=== PATIENT | female | born 2000 | race Caucasian/White ===

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

== ENCOUNTER 2018-05-25 10:09 | Day surgery (SDC) | payer BC, OTHER ==
[~2018-05-25] VITALS: Ht 167.6 cm; Wt 60.7 kg
[2018-05-25 10:37] VITALS: BP 111/83; PULSE 80; TEMP 98.2
[2018-05-25] MEDS ORDERED: LESSINA 28 0.021 TAB PO (10:37)
[2018-05-25] MEDS ORDERED: LEXAPRO 10MG10 MG PO (10:37)
[2018-05-25] MEDS ORDERED: CARAFATE 1GM1 G PO (10:37)
[2018-05-25 12:05] VITALS: BP 118/85; PULSE 103; TEMP 98
[2018-05-25 12:20] VITALS: BP 116/80; PULSE 72
[2018-05-25 12:35] VITALS: BP 113/76; PULSE 72
[2018-05-25 12:50] VITALS: BP 109/66; PULSE 78
== END 2018-05-25 13:11 | disposition home or self-care (01) ==
LOC: SDCO 10:09
DX: K29.30 Chronic superficial gastritis without bleeding (principal); K21.9 Gastro-esophageal reflux disease without esophagitis; K59.00 Constipation, unspecified; R19.7 Diarrhea, unspecified; K92.1 Melena; F32.9 Major depressive disorder, single episode, unspecified; Z90.49 Acquired absence of other specified parts of digestive tract; Z88.0 Allergy status to penicillin
CPT/HCPCS: J2250; J3010

== ENCOUNTER → 2018-06-15 | Outpatient (CLI) | payer BC, OTHER ==
[~2018-06-15] MED LIST changes: +CARAFATE 1GM1 G PO; +LESSINA 28 0.021 TAB PO; +LEXAPRO 10MG10 MG PO
== END ==
LOC: COL.RAD 07:48
DX: R10.9 Unspecified abdominal pain (principal); R11.2 Nausea with vomiting, unspecified
CPT/HCPCS: A9541

== ENCOUNTER 2018-07-10 04:38 | Emergency (ER) | payer BC, OTHER ==
[~2018-07-10] VITALS: Ht 167.6 cm; Wt 61.4 kg
[2018-07-10 04:41] VITALS: TEMP 98.4
[2018-07-10 05:28] LABS: BASO # 0.1 (0.0-0.2); BASO % 0.4 % (0.0-2.0); EOS # 0.2 (0.0-0.7); EOS % 1.2 % (0-4.0); GRAN # 9.9 (1.4-6.5); HEMATOCRIT 44.1 % (35.0-45.0); HEMOGLOBIN 15.1 g/dl (12.0-15.0); LYMPH # 4.7 (1.2-3.4); LYMPH % 29.5 % (20.0-51.0); MEAN CELL VOLUME 88 fl (80.0-95.0); MEAN CORPUSCULAR HEMOGLOBIN 30 pg (26.0-32.0); MEAN CORPUSCULAR HGB CONC 34 g/dl (33.0-37.0); MEAN PLATELET VOLUME 9.3 fl (7.4-10.4); MONO # 0.9 (0.1-0.6); MONO % 5.6 % (1.7-9.3); PLATELET COUNT 355 K/mm3 (130-400); RED BLOOD COUNT 5.02 M/mm3 (4.10-5.30); REDCELL DISTRIBUTION WIDTH-CV 12.5 % (11.5-14.5)
[2018-07-10] MEDS ORDERED: PAMELOR 10MG10 MG PO (05:34)
[2018-07-10 05:40] LABS: BILIRUBIN,TOTAL 0.7 mg/dL (0.0-1.0); CALCIUM 9.8 mg/dL (8.4-10.2); CREATININE, serum 0.78 mg/dL (0.52-1.25); POTASSIUM 3.2 mmol/L (3.4-5.0); TOTAL PROTEIN 8.6 gm/dL (6.4-8.2)
[2018-07-10] MEDS ORDERED: ZITHROMAX Z PA250 MG PO (06:31)
[2018-07-10] MEDS ORDERED: OMNICEF 300MG300 MG PO (06:31)
[2018-07-10 07:16] VITALS: BP 121/81; PULSE 76
== END 2018-07-10 07:19 | disposition home or self-care (01) ==
LOC: COL.ER 04:38
PROVIDERS: Emergency Medicine
DX: R05 Cough (principal); Z90.49 Acquired absence of other specified parts of digestive tract
CPT/HCPCS: A4216; J0696; J1100; J1885; J2405; J7030; Q9967

== ENCOUNTER 2018-10-06 15:23 | Emergency (ER) | payer BC, OTHER ==
[~2018-10-06] VITALS: Ht 167.6 cm; Wt 62.7 kg
[~2018-10-06 15:23] MED LIST changes: +OMNICEF 300MG300 MG PO; +PAMELOR 10MG10 MG PO; +ZITHROMAX Z PA250 MG PO
[2018-10-06 15:26] VITALS: BP 139/76; TEMP 98
[2018-10-06] MEDS ORDERED: POLYMYXIN B/TRIMETH OD (15:41)
[2018-10-06] MEDS ORDERED: BACTRIM DS 8001 TAB PO (15:42)
[2018-10-06] MEDS ORDERED: AMBIEN 5MG TABLE5 MG PO (15:56)
[2018-10-06] MEDS ORDERED: ZOFRAN 4MG T4 MG/TAB PO (15:56)
[2018-10-06] MEDS ORDERED: ZOFRAN ODT4 MG PO (16:26)
[2018-10-06] MEDS ORDERED: CLEOCIN HC150 MG/CAP PO (16:26)
[2018-10-06 17:39] VITALS: PULSE 90
== END 2018-10-06 17:48 | disposition home or self-care (01) ==
LOC: COL.ER 15:23
DX: B99.9 Unspecified infectious disease (principal); H10.89 Other conjunctivitis
CPT/HCPCS: J1170; J2550; J7030

== ENCOUNTER 2018-10-09 22:18 | Emergency (ER) | payer BC, OTHER ==
[~2018-10-09] VITALS: Ht 167.6 cm; Wt 61.4 kg
[~2018-10-09 22:18] MED LIST changes: +AMBIEN 5MG TABLE5 MG PO; +BACTRIM DS 8001 TAB PO; +CLEOCIN HC150 MG/CAP PO; +POLYMYXIN B/TRIMETH OD; +ZOFRAN 4MG T4 MG/TAB PO; +ZOFRAN ODT4 MG PO
[2018-10-09 22:26] VITALS: BP 127/78; PULSE 110; TEMP 99.2
== END 2018-10-10 00:10 | disposition home or self-care (01) ==
LOC: COL.ER 22:18
DX: H10.9 Unspecified conjunctivitis (principal); F32.9 Major depressive disorder, single episode, unspecified
CPT/HCPCS: J0696